=== PATIENT | male | born 1960 ===

== ENCOUNTER 2023-04-24 06:00 | Day surgery (SDC) | payer OTHER | END 2023-04-24 12:20 | disposition home or self-care (01) | LOC: AMB-ENDOS 06:00 | PROVIDERS: ATTEND Surgery | DX: D12.0 Benign neoplasm of cecum (principal); D37.4 Neoplasm of uncertain behavior of colon; K57.30 Diverticulosis of large intestine without perforation or abscess without bleeding; Z20.822 Contact with and (suspected) exposure to COVID-19 ==